=== PATIENT | male | born 1975 | race Two or more races ===

== ENCOUNTER 2023-01-10 16:36 | Inpatient (IN) | payer MEDICAID, OTHER ==
[~2023-01-10] VITALS: Ht 167.6 cm; Wt 108.2 kg
[2023-01-10 17:17] LABS: Basophils # (auto) 0.1 10 ^3/uL (0-0.2); Basophils % (auto) 0.3 % (0.0-2.0); Eosinophils # (auto) 0 10 ^3/uL (0-0.8); Hematocrit 46.5 % (41.0-53.0); Hemoglobin 15.7 g/dL (13.5-17.5); Lymphocytes # (auto) 0.9 10 ^3/uL (0.4-5.4); Lymphocytes % (auto) 3.9 % (10.0-50.0); Mean Corpuscular Hemoglobin 30.7 pg (28.0-32.0); Mean Corpuscular Hgb Conc. 33.8 g/dL (32.0-36.0); Mean Corpuscular Volume 90.8 fL (80.0-100.0); Monocytes # (auto) 1.3 10 ^3/uL (0-1.3); Monocytes % (auto) 5.8 % (0.0-12.0); Neutrophils # (auto) 20.2 10 ^3/uL (1.6-8.6); Red Blood Cells 5.12 10^6/uL (4.5-5.90); Red Cell Distribution Width 13.3 % (11.8-14.3); White Blood Cell 22.5 10^3/uL (4.4-10.8)
[2023-01-10 17:35] LABS: Alanine Aminotransferase 34 U/L (7-40); Albumin 4.6 g/dL (3.2-4.8); Alkaline Phosphatase 92 U/L (46-116); Anion Gap 9 (5-15); Aspartate Aminotransferase 21 U/L (13-40); BUN/Creatinine Ratio 8.4 (10.0-20.0); Blood Urea Nitrogen 8 mg/dL (9-23); Calcium 9.1 mg/dL (8.7-10.4); Carbon Dioxide 23 mmol/L (20-30); Chloride 103 mmol/L (98-107); Glucose 130 mg/dL (74-106); Potassium 3.8 mmol/L (3.5-5.1); Sodium 135 mmol/L (136-145)
[2023-01-10 17:36] LABS: Bilirubin, Total 3.7 mg/dL (0.2-1.0); Total Protein 7.8 g/dL (5.7-8.2)
[2023-01-10] MEDS ORDERED: PROCHLORPERAZINE EDISYLATE 5 MG/ML 2ML VIAL IM ONE (17:45)
[2023-01-10] MEDS ORDERED: traMADol HCL 50 MG TAB PO ONE (17:45)
[2023-01-10 18:33] LABS: Urine Bacteria FEW /hpf (None Seen); Urine Blood 1+ /uL (Negative); Urine Clarity HAZY (Clear); Urine Color Yellow (Yellow); Urine Mucus FEW (None Seen); Urine Protein, UAD 1+ (Negative); Urine Specific Gravity 1.021 (1.001-1.035); Urine Urobilinogen Normal (Negative); Urine WBC 145 /hpf (0 - 3); Urine pH 7.5 (5.0-8.0)
[2023-01-10] MEDS ORDERED: CIPROFLOXACIN 400MG/200ML 200 ML IV ONE (20:45)
[2023-01-10] MEDS ORDERED: AZITHROMYCIN 250 MG TAB PO ONE (21:15)
[2023-01-10] MEDS ORDERED: cefTRIAXone SOD 1,000 MG VL IM ONE (21:15)
[2023-01-10] MEDS ORDERED: KETOROLAC TROMETH 30 MG/ML 1ML VIAL IV ONE (21:30)
[2023-01-10] MEDS ORDERED: SODIUM CHLORIDE 0.9% 1,000 ML IV ONE (21:30)
[2023-01-10] MEDS ORDERED: LIDOCAINE 1% HCL (LOCAL ANESTH.) INJ 20ML MDV ONE (21:35)
[2023-01-10] MEDS ORDERED: DOCUSATE SOD 100 MG CAP PO PRN (23:00)
[2023-01-10] MEDS ORDERED: ONDANSETRON HCL 4 MG/2 ML VIAL IV PRN (23:00)
[2023-01-10] MEDS ORDERED: HYDROcodone-ACET 5/325MG TAB PO PRN (23:00)
[2023-01-10] MEDS ORDERED: NITROGLYCERIN 0.4 MG SL TAB SL PRN (23:30)
[2023-01-10] MEDS: SODIUM CHLORIDE 0.9% 1,000 ML IV SCH (23:30)
[2023-01-10] MEDS ORDERED: MORPHINE SULFATE INJ 2 MG/ml SYRG IV PRN (23:30)
[2023-01-11 05:17] LABS: Basophils # (auto) 0 10 ^3/uL (0-0.2); Basophils % (auto) 0.1 % (0.0-2.0); Eosinophils # (auto) 0 10 ^3/uL (0-0.8); Hemoglobin 14.4 g/dL (13.5-17.5); Lymphocytes # (auto) 0.7 10 ^3/uL (0.4-5.4); Lymphocytes % (auto) 3.8 % (10.0-50.0); Mean Corpuscular Hemoglobin 30.8 pg (28.0-32.0); Mean Corpuscular Hgb Conc. 34.3 g/dL (32.0-36.0); Mean Corpuscular Volume 89.6 fL (80.0-100.0); Monocytes # (auto) 1.4 10 ^3/uL (0-1.3); Monocytes % (auto) 7.3 % (0.0-12.0); Neutrophils # (auto) 16.8 10 ^3/uL (1.6-8.6); Neutrophils % (auto) 88.8 % (37.0-80.0); Red Blood Cells 4.68 10^6/uL (4.5-5.90); Red Cell Distribution Width 13.5 % (11.8-14.3)
[2023-01-11] MEDS: ACETAMINOPHEN 325 MG TAB PO PRN ×2 (05:28→18:03)
[2023-01-11 05:38] LABS: Alanine Aminotransferase 29 U/L (7-40); Alkaline Phosphatase 87 U/L (46-116); Anion Gap 9 (5-15); BUN/Creatinine Ratio 12.1 (10.0-20.0); Blood Urea Nitrogen 11 mg/dL (9-23); Calcium 8.8 mg/dL (8.7-10.4); Carbon Dioxide 21 mmol/L (20-30); Chloride 104 mmol/L (98-107); Glucose 125 mg/dL (74-106); Potassium 3.7 mmol/L (3.5-5.1); Sodium 134 mmol/L (136-145)
[2023-01-11 05:39] LABS: Albumin 4.2 g/dL (3.2-4.8); Aspartate Aminotransferase 21 U/L (13-40); Bilirubin, Total 3.1 mg/dL (0.2-1.0); Total Protein 7.3 g/dL (5.7-8.2)
[2023-01-11] MEDS ORDERED: VANCOMYCIN 1GM/250ML 250 ML IV ONE (05:45)
[2023-01-11] MEDS ORDERED: VANCOMYCIN PER PHARMACY 0 MG IV SCH (05:45)
[2023-01-11 06:34] VITALS: PULSE 76; RESP 20; O2SAT 94
[2023-01-11] MEDS: PIPERACILLIN-TAZOB 3.375GM 100 ML IV SCH ×3 (06:45→22:33)
[2023-01-11 08:14] VITALS: PULSE 81; RESP 14; O2SAT 95
[2023-01-11] MEDS: VANCOMYCIN 1GM/250ML 250 ML IV SCH ×2 (14:54→21:25)
[2023-01-11] MEDS: SODIUM CHLORIDE 0.9% 1,000 ML IV SCH (15:57)
[2023-01-11 17:55] VITALS: BP 111/72; PULSE 81; RESP 19; TEMP 99; O2SAT 100
[2023-01-11 18:15] VITALS: BP 111/72; PULSE 81; RESP 18; TEMP 99; O2SAT 99
[2023-01-11 20:00] VITALS: BP 95/56; PULSE 77; RESP 18; TEMP 98.6; O2SAT 96
[2023-01-11 22:00] VITALS: BP 95/56; PULSE 77; RESP 18; TEMP 98.6; O2SAT 96
[2023-01-12] MEDS: ACETAMINOPHEN 325 MG TAB PO PRN ×2 (03:02→17:15)
[2023-01-12 05:14] VITALS: BP 107/64; PULSE 81; RESP 18; TEMP 99; O2SAT 95
[2023-01-12] MEDS: PIPERACILLIN-TAZOB 3.375GM 100 ML IV SCH ×3 (05:51→21:15)
[2023-01-12] MEDS: VANCOMYCIN 1GM/250ML 250 ML IV SCH (05:51)
[2023-01-12 07:36] LABS: Basophils # (auto) 0 10 ^3/uL (0-0.2); Basophils % (auto) 0.3 % (0.0-2.0); Eosinophils # (auto) 0 10 ^3/uL (0-0.8); Eosinophils % (auto) 0.3 % (0.0-7.0); Hematocrit 40.6 % (41.0-53.0); Hemoglobin 13.5 g/dL (13.5-17.5); Lymphocytes # (auto) 1.4 10 ^3/uL (0.4-5.4); Lymphocytes % (auto) 10.7 % (10.0-50.0); Mean Corpuscular Hemoglobin 30.2 pg (28.0-32.0); Mean Corpuscular Hgb Conc. 33.1 g/dL (32.0-36.0); Mean Corpuscular Volume 91.3 fL (80.0-100.0); Monocytes # (auto) 0.9 10 ^3/uL (0-1.3); Monocytes % (auto) 7.1 % (0.0-12.0); Neutrophils # (auto) 10.8 10 ^3/uL (1.6-8.6); Neutrophils % (auto) 81.6 % (37.0-80.0); Red Blood Cells 4.45 10^6/uL (4.5-5.90); Red Cell Distribution Width 13.5 % (11.8-14.3); White Blood Cell 13.3 10^3/uL (4.4-10.8)
[2023-01-12 08:00] VITALS: BP 95/56; PULSE 73; PULSE 77; RESP 18; TEMP 98.6; O2SAT 96
[2023-01-12] MEDS: SODIUM CHLORIDE 0.9% 1,000 ML IV SCH (08:20)
[2023-01-12 09:00] VITALS: BP 111/69; PULSE 73; RESP 18; TEMP 98.2; O2SAT 95
[2023-01-12 09:00] LABS: Alanine Aminotransferase 23 U/L (7-40); Albumin 3.8 g/dL (3.2-4.8); Alkaline Phosphatase 92 U/L (46-116); Anion Gap 6 (5-15); Aspartate Aminotransferase 18 U/L (13-40); BUN/Creatinine Ratio 9.5 (10.0-20.0); Blood Urea Nitrogen 9 mg/dL (9-23); Calcium 8.5 mg/dL (8.7-10.4); Carbon Dioxide 22 mmol/L (20-30); Chloride 110 mmol/L (98-107); Glucose 111 mg/dL (74-106); Magnesium 2.1 mg/dL (1.6-2.6); Potassium 3.5 mmol/L (3.5-5.1); Sodium 138 mmol/L (136-145)
[2023-01-12 09:01] LABS: Bilirubin, Total 1.9 mg/dL (0.2-1.0); Total Protein 6.5 g/dL (5.7-8.2)
[2023-01-12 10:14] LABS: Triglycerides 105 mg/dL (< 150)
[2023-01-12 10:15] LABS: LDL Cholesterol 75 mg/dL (< 100)
[2023-01-12 10:16] LABS: Cholesterol 129 mg/dL (< 200); HDL Cholesterol 26 mg/dL (40-59)
[2023-01-12 11:10] LABS: Albumin 3.6 g/dL (3.2-4.8); Bilirubin, Direct 0.6 mg/dL (<0.3)
[2023-01-12 11:11] LABS: Total Protein 6.3 g/dL (5.7-8.2)
[2023-01-12 13:23] VITALS: BP 101/62; PULSE 64; RESP 17; TEMP 99.1; O2SAT 98
[2023-01-12 17:00] VITALS: BP 110/66; PULSE 78; RESP 19; TEMP 99.5; O2SAT 97
[2023-01-12 22:00] VITALS: BP 109/67; PULSE 70; RESP 18; TEMP 98.6; O2SAT 96
[2023-01-13] MEDS: ACETAMINOPHEN 325 MG TAB PO PRN ×3 (00:30→18:10)
[2023-01-13] MEDS: SODIUM CHLORIDE 0.9% 1,000 ML IV SCH ×2 (01:00→19:29)
[2023-01-13 05:00] VITALS: BP 109/70; PULSE 97; RESP 18; TEMP 98.8; O2SAT 96
[2023-01-13 05:48] LABS: Basophils # (auto) 0 10 ^3/uL (0-0.2); Basophils % (auto) 0.5 % (0.0-2.0); Eosinophils # (auto) 0.1 10 ^3/uL (0-0.8); Eosinophils % (auto) 1.8 % (0.0-7.0); Hematocrit 39.3 % (41.0-53.0); Hemoglobin 13.5 g/dL (13.5-17.5); Lymphocytes # (auto) 1.3 10 ^3/uL (0.4-5.4); Lymphocytes % (auto) 24.8 % (10.0-50.0); Mean Corpuscular Hemoglobin 30.9 pg (28.0-32.0); Mean Corpuscular Hgb Conc. 34.2 g/dL (32.0-36.0); Mean Corpuscular Volume 90.1 fL (80.0-100.0); Monocytes # (auto) 0.5 10 ^3/uL (0-1.3); Monocytes % (auto) 10.7 % (0.0-12.0); Neutrophils # (auto) 3.2 10 ^3/uL (1.6-8.6); Neutrophils % (auto) 62.2 % (37.0-80.0); Red Blood Cells 4.36 10^6/uL (4.5-5.90); Red Cell Distribution Width 13.4 % (11.8-14.3); White Blood Cell 5.1 10^3/uL (4.4-10.8)
[2023-01-13 05:58] LABS: Anion Gap 7 (5-15); Carbon Dioxide 23 mmol/L (20-30); Chloride 109 mmol/L (98-107); Potassium 3.6 mmol/L (3.5-5.1); Sodium 139 mmol/L (136-145)
[2023-01-13 05:59] LABS: Calcium 8.6 mg/dL (8.7-10.4)
[2023-01-13 06:04] LABS: BUN/Creatinine Ratio 8.2 (10.0-20.0); Blood Urea Nitrogen 8 mg/dL (9-23); Glucose 142 mg/dL (74-106)
[2023-01-13] MEDS: PIPERACILLIN-TAZOB 3.375GM 100 ML IV SCH ×2 (06:05→13:28)
[2023-01-13 08:00] VITALS: PULSE 75; RESP 17; O2SAT 97
[2023-01-13 10:42] VITALS: BP 115/74; PULSE 75; RESP 17; TEMP 98.8; O2SAT 97
[2023-01-13] MEDS ORDERED: CIPR-173 PO (13:20)
[2023-01-13 15:07] VITALS: BP 112/63; PULSE 59; RESP 17; TEMP 98; O2SAT 98
[2023-01-13 17:27] VITALS: BP 113/64; PULSE 67; RESP 17; TEMP 99; O2SAT 97
[2023-01-13 18:04] VITALS: BP 113/64; PULSE 89; RESP 19; TEMP 99; O2SAT 97
[2023-01-14 08:07] LABS: PSA Free 7.16 ng/mL; Prostate Specific Antigen 45.2 ng/mL (0.0-4.0)
== END 2023-01-13 19:38 | disposition home or self-care (01) | DRG 720 ==
LOC: ER 16:36 → OVERFLOW 23:21 → EAST 01-11 17:28
PROVIDERS: ADMIT Nurse Practitioner Family; ATTEND Internal Medicine Geriatric Medicine
DX: A41.9 Sepsis, unspecified organism (principal); K76.0 Fatty (change of) liver, not elsewhere classified; K57.30 Diverticulosis of large intestine without perforation or abscess without bleeding; N30.00 Acute cystitis without hematuria; N41.0 Acute prostatitis
CPT/HCPCS: 36415; 71045; 74176; 80048; 80053; 80061; 80076; 80202; 81001; 83735; 84154; 84484; 85025; 87040; 87086; 87088; 87186; 96365; 96372; 96375; G0378; J0696; J1885; J2001; J2543

== ENCOUNTER 2023-02-23 14:33 | Emergency (ER) | payer MEDICAID ==
[~2023-02-23] VITALS: Ht 180.3 cm; Wt 104.5 kg
[~2023-02-23 14:33] MED LIST: CIPR-173 PO
[2023-02-23] MEDS ORDERED: ONDANSETRON ODT 4 MG TAB PO ONE (15:15)
[2023-02-23] MEDS ORDERED: MECL25CH85 PO ×2 (16:23)
[2023-02-23] MEDS ORDERED: ZOFR4T PO (16:23)
[2023-02-23 16:58] VITALS: PULSE 70
[2023-02-23] MEDS ORDERED: SODIUM CHLORIDE 0.9% 1,000 ML IV ONE (17:45)
[2023-02-23] MEDS ORDERED: PROCHLORPERAZINE EDISYLATE 5 MG/ML 2ML VIAL IV ONE (17:45)
[2023-02-23 18:28] LABS: Basophils # (auto) 0.1 10 ^3/uL (0-0.2); Basophils % (auto) 0.6 % (0.0-2.0); Eosinophils # (auto) 0 10 ^3/uL (0-0.8); Eosinophils % (auto) 0.1 % (0.0-7.0); Hematocrit 47.8 % (41.0-53.0); Lymphocytes % (auto) 7.7 % (10.0-50.0); Mean Corpuscular Hemoglobin 30.2 pg (28.0-32.0); Mean Corpuscular Hgb Conc. 33.4 g/dL (32.0-36.0); Mean Corpuscular Volume 90.4 fL (80.0-100.0); Monocytes # (auto) 0.5 10 ^3/uL (0-1.3); Monocytes % (auto) 3.7 % (0.0-12.0); Neutrophils # (auto) 11.9 10 ^3/uL (1.6-8.6); Neutrophils % (auto) 87.9 % (37.0-80.0); Red Blood Cells 5.29 10^6/uL (4.5-5.90); Red Cell Distribution Width 13.8 % (11.8-14.3); White Blood Cell 13.5 10^3/uL (4.4-10.8)
[2023-02-23 18:42] LABS: Alanine Aminotransferase 41 U/L (7-40); Albumin 4.7 g/dL (3.2-4.8); Alkaline Phosphatase 97 U/L (46-116); Anion Gap 10 (5-15); Aspartate Aminotransferase 28 U/L (13-40); BUN/Creatinine Ratio 13.4 (10.0-20.0); Blood Urea Nitrogen 11 mg/dL (9-23); Calcium 9.9 mg/dL (8.5-10.1); Carbon Dioxide 22 mmol/L (20-30); Chloride 107 mmol/L (98-107); Glucose 133 mg/dL (74-106); Potassium 4.2 mmol/L (3.5-5.1); Sodium 139 mmol/L (136-145)
[2023-02-23 18:43] LABS: Bilirubin, Total 1.4 mg/dL (0.2-1.0); Total Protein 7.6 g/dL (5.7-8.2)
[2023-02-23 20:15] VITALS: TEMP 97.2
[2023-02-23 20:24] LABS: Urine Bacteria NONE SEEN /hpf (None Seen); Urine Blood Negative /uL (Negative); Urine Clarity Clear (Clear); Urine Color Yellow (Yellow); Urine Protein, UAD TRACE (Negative); Urine Specific Gravity 1.021 (1.001-1.035); Urine Urobilinogen Normal (Negative); Urine WBC <1 /hpf (0 - 3)
[2023-02-23] MEDS ORDERED: diphenhdrAMINE HCL 50 MG/1 ML VL IV ONE (21:00)
[2023-02-23] MEDS ORDERED: DIPH25CA51 PO (22:45)
[2023-02-23 23:20] VITALS: BP 146/86; PULSE 86
[2023-02-24 00:32] VITALS: RESP 26; O2SAT 98
== END 2023-02-23 23:27 | disposition home or self-care (01) ==
LOC: EDBD 14:33 → ER 14:33
DX: R42 Dizziness and giddiness (principal); F17.210 Nicotine dependence, cigarettes, uncomplicated
CPT/HCPCS: 36415; 70450; 80053; 81001; 85025; 96361; 96374; 96375; 99285; J0780; J1200; J7030; Q0162